=== PATIENT | female | born 1980 | race Two or more races ===

== ENCOUNTER 2017-02-13 14:00 | Observation (INO) | payer MEDICAID | END 2017-02-13 15:05 | disposition home or self-care (01) | DRG 566 | LOC: LDRP 14:00 → UNDODISOB 15:05 | PROVIDERS: ADMIT Specialist; ATTEND Specialist | DX: O36.8120 Decreased fetal movements, second trimester, not applicable or unspecified (principal); O23.42 Unspecified infection of urinary tract in pregnancy, second trimester; Z3A.25 25 weeks gestation of pregnancy | CPT/HCPCS: 59025; 80307; 81002; G0378 ==

== ENCOUNTER 2017-02-15 22:19 | Observation (INO) | payer MEDICAID ==
[2017-02-15 23:38] LABS: Basophils # (auto) 0.1 uL; Basophils % (auto) 0.5 % (0.0-2.0); Eosinophils # (auto) 0.3 uL; Eosinophils % (auto) 1.7 % (0.0-7.0); Hematocrit 30.9 % (36.0-46.0); Hemoglobin 10.4 g/dL (12.2-16.2); Lymphocytes # (auto) 2.7 uL; Lymphocytes % (auto) 17.7 % (10.0-50.0); Mean Corpuscular Hemoglobin 31.1 pg (28.0-32.0); Mean Corpuscular Hgb Conc. 33.5 g/dL (32.0-36.0); Mean Platelet Volume 7.7 fL (7.4-10.4); Monocytes % (auto) 6.4 % (0.0-12.0); Neutrophils % (auto) 73.7 % (37.0-80.0); Platelet Count (auto) 363 10^3/uL (140-450); SUSPECT VIEW TRANSMISSION; White Blood Cell 15.1 10^3/uL (4.4-10.8)
[2017-02-15 23:54] LABS: Albumin 2.8 g/dL (3.4-5.0); BUN/Creatinine Ratio 16.2; Calcium 8.8 mg/dL (8.5-10.1); Potassium 3.1 mmol/L (3.5-5.1)
[2017-02-15 23:55] LABS: INR 0.95 (0.9-1.15); Partial Thromboplastin Time 24.2 sec (22.64-33.71); Prothrombin Time 10.3 sec (9.37-12.3)
[2017-02-15 23:57] LABS: Bilirubin, Total 0.3 mg/dL (0.2-1.0); Total Protein 6.6 g/dL (6.4-8.2)
[2017-02-16 00:01] LABS: Urine Bilirubin Negative (Negative); Urine Blood 1+ /uL (Negative); Urine Color Yellow (Yellow); Urine Glucose 3+ mg/dL (Normal); Urine Ketone 1+ (Negative); Urine Mucus FEW (None Seen); Urine Nitrite POSITIVE (Negative); Urine RBC 6 /hpf (0 - 4); Urine Squamous Epithelial Cell FEW /hpf (<5); Urine Urobilinogen Normal (Negative)
== END 2017-02-16 00:21 | disposition home or self-care (01) | DRG 566 ==
LOC: LDRP 22:19
PROVIDERS: ADMIT Specialist; ATTEND Specialist
DX: O26.852 Spotting complicating pregnancy, second trimester (principal); Z3A.26 26 weeks gestation of pregnancy
CPT/HCPCS: 36415; 59025; 76805; 80053; 81001; 81002; 85025; 85610; 85730; 86592; 86762; 86850; 86900; 86901; 87340; G0378